=== PATIENT | male | born 1990 | race Caucasian/White ===

== ENCOUNTER → 2016-06-16 | Outpatient (CLI) | payer BC ==
[2016-06-16 12:17] LABS: MEAN CORPUSCULAR VOLUME 88 FL (80-100); MEAN PLATELET VOLUME 10.4 FL (6.0-9.5); PLATELET COUNT 194 10^3uL (150-450); WHITE BLOOD COUNT 4.51 10^3uL (4.0-11.0)
[2016-06-16 12:27] LABS: MEAN CORPUSCULAR HEMOGLOBIN 32.2 PG (26.0-34.0); MEAN CORPUSCULAR HGB CONC 36.6 g/dL (31.0-37.0)
[2016-06-16 12:31] LABS: BAND NEUTROPHILS % 0 % (0-6); LYMPHOCYTES # 0.5 #; SEGMENTED NEUTROPHILS % 61 % (51-67)
[2016-06-16 12:32] LABS: ANISOCYTOSIS SLIGHT; EOSINOPHILS % 1 % (0-4); MONOCYTES # 0.8 #; MONOCYTES % 20 % (3-11); RBC MORPH SEE REFERENCE (NORMAL); TOTAL CELLS COUNTED 100
== END ==
LOC: LAB 11:55
PROVIDERS: ATTEND Surgery
DX: K62.5 Hemorrhage of anus and rectum (principal); R10.32 Left lower quadrant pain
CPT/HCPCS: 36415; 85025

== ENCOUNTER 2016-06-23 10:23 | Day surgery (SDC) | payer BC ==
[~2016-06-23] VITALS: Ht 175.3 cm; Wt 66.0 kg
[~2016-06-23 10:23] MED LIST: LACTATED RINGERS 1,000 ML IV SCH; SODIUM CHLORIDE FLUSH 3 ML SYR IV PRN
[2016-06-23 10:35] VITALS: BP 123/82
[2016-06-23 11:39] VITALS: BP 129/83
[2016-06-23 11:53] VITALS: BP 122/91
== END 2016-06-23 11:57 | disposition home or self-care (01) ==
LOC: ASC 10:23
PROVIDERS: ATTEND Surgery
DX: K62.5 Hemorrhage of anus and rectum (principal); K62.89 Other specified diseases of anus and rectum; R10.32 Left lower quadrant pain; Z86.010 Personal history of colon polyps